=== PATIENT | male | born 1945 | race Caucasian/White ===

== ENCOUNTER 2020-11-30 21:27 | Observation (INO) | payer MEDICARE ==
--- NOTE | 2020-11-30 21:52 | ERPHSYRPT ---
- History of Present Illness Time Seen by Provider: 11/30/20 21:35 Source: patient Exam Limitations: no limitations Physician History: 75 years old male with history of hypertension, diabetes mellitus, congestive heart failure, TIA presented in the ER via EMS with chief complaint of near syncopal episode and fall. 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 He fell on the left hip and is complaining of pain in the left hip with minimal movements 8/10 intensity, sharp in nature. Also report having some chest discomfort immediately after near syncopal episode but is back to normal now. No difficulty breathing. Denies any abdominal pain nausea or vomiting. No numbness tingling or focal weakness. No difficulty speech. Denies any visual disturbance. Timing/Duration: hour(s) (0.5), sudden, improved Severity: moderate Associated Symptoms: nausea, chest pain, syncope, weakness, No vomiting, No abdominal pain, No shortness of breath, No heartburn, No diaphoresis, No cough, No chills, No fever, No headaches, No loss of appetite, No malaise Allergies/Adverse Reactions: No Known Drug Allergies Allergy (Unverified 11/30/20 21:35) Home Medications: Aspirin [Aspirin EC] 81 mg PO DAILY 11/30/20 [History] Carvedilol 25 mg PO BID 11/30/20 [History] Duloxetine HCl 20 mg PO BID 11/30/20 [History] Lisinopril/Hydrochlorothiazide [Lisinopril-Hctz 20-25 mg Tab] 1 tab PO DAILY 11/30/20 [History] Metformin HCl 500 mg [Glucophage 500 MG] 500 mg PO TID 11/30/20 [History] Terazosin HCl 2 mg PO HS 11/30/20 [History] - Review of Systems Constitutional: No Symptoms Eyes: No Symptoms Ears, Nose, & Throat: No Symptoms Respiratory: No Symptoms Cardiac: Chest Pain Abdominal/Gastrointestinal: No Symptoms Genitourinary Symptoms: No Symptoms Musculoskeletal: Fall, Injury, Joint Pain Skin: Skin Lesions Neurological: Dizziness Psychological: No Symptoms Endocrine: No Symptoms Hematologic/Lymphatic: No Symptoms Immunological/Allergic: No Symptoms - Nursing Vital Signs Nursing Vital Signs: Initial Vital Signs Temperature 97.9 F 11/30/20 21:33 Pulse Rate 91 H 11/30/20 21:33 Respiratory Rate 22 11/30/20 21:33 Blood Pressure 180/95 11/30/20 21:33 O2 Sat by Pulse Oximetry 97 11/30/20 21:33 Pain Scale Pain Intensity 5 - Physical Exam General Appearance: no apparent distress, alert Eye Exam: PERRL/EOMI, eyes nml inspection Ears, Nose, Throat Exam: normal ENT inspection, TMs normal, pharynx normal, moist mucous membranes Neck Exam: normal inspection, supple, full range of motion Respiratory Exam: normal breath sounds, lungs clear Cardiovascular Exam: regular rate/rhythm, normal heart sounds Gastrointestinal/Abdomen Exam: soft, normal bowel sounds, No tenderness Back Exam: normal inspection, normal range of motion, decreased range of motion (Left sacroiliac area tenderness), muscle spasm Extremity Exam: normal inspection, No normal range of motion (Decreased range of motion at left hip), No deformities Neurologic Exam: alert, oriented x 3, cooperative, 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 II-XII nml as tested, normal mood/affect, nml cerebellar function, sensation nml, No motor deficits Skin Exam: normal color SpO2 Interpretation: normal SpO2: 97 O2 Delivery: Room Air - Course EKG Interpreted by Me: RATE (82), Sinus Rhythm, LAFB, Right Bundle Branch Block, Non-specific ST Changes Ordered Tests: Active Orders 24 hr Category Date Time Status EKG-ER Only STAT Care 11/30/20 21:47 Active IV Insertion STAT Care 11/30/20 21:47 Active NPO (ED) STAT Care 11/30/20 21:47 Active Orthostatic Vital Signs STAT Care 11/30/20 21:48 Active CERVICAL SPINE WO CONTRAST [CT] Stat Exams 11/30/20 21:47 Taken CHEST 1 VIEW (PORTABLE) Stat Exams 11/30/20 21:48 Taken HEAD WITHOUT CONTRAST [CT] Stat Exams 11/30/20 21:47 Taken PELVIS WITHOUT CONTRAST [CT] Stat Exams 11/30/20 21:47 Taken CBC W DIFF Stat Lab 11/30/20 22:08 Completed CMP Stat Lab 11/30/20 22:08 Completed TROPONIN Q3H Lab 11/30/20 22:08 Completed TROPONIN Q3H Lab 12/01/20 01:00 Ordered TROPONIN Q3H Lab 12/01/20 04:00 Ordered TROPONIN Q3H Lab 12/01/20 07:00 Ordered TROPONIN Q3H Lab 12/01/20 10:00 Ordered UA W/RFX UR CULTURE Stat Lab 11/30/20 22:08 Completed Medication Summary Generic Name Dose Route Start Last Admin Trade Name Yeimy PRN Reason Stop Dose Admin Sodium Chloride 1,000 mls @ 100 mls/hr 11/30/20 23:15 11/30/20 23:09 Sodium Chloride 0.9% 1000 Ml IV 12/30/20 23:14 100 mls/hr .Q10H SUKHWINDER Administration Sodium Chloride 1,000 mls @ 100 mls/hr 11/30/20 23:15 11/30/20 23:09 Sodium Chloride 0.9% 1000 Ml IV 12/30/20 23:14 Not Given .Q10H SUKHWINDER Lab/Rad Data: Laboratory Result Diagrams 11/30/20 22:08 11/30/20 22:08 Laboratory Results 11/30/20 11/30/20 11/30/20 Range/Units 22:08 22:08 22:08 WBC (4.0-10.5) K/mm3 RBC (4.1-5.6) M/mm3 Hgb (12.5-18.0) gm/dl Hct (42-50) % MCV (78-100) fl MCH (26-32) pg MCHC (32-36) g/dl RDW (11.5-14.0) % Plt Count (150-450) K/mm3 MPV (7.5-11.0) fl Gran % (36.0-66.0) % Eos # (Auto) (0-0.5) Absolute Lymphs (auto) (1.0-4.6) Absolute Monos (auto) (0.0-1.3) Lymphocytes % (24.0-44.0) % Monocytes % (0.0-12.0) % Eosinophils % (0.00-5.0) % Basophils % (0.0-0.4) % Absolute Granulocytes (1.4-6.9) Basophils # (0-0.4) Sodium 141 (137-145) mmol/L Potassium 3.5 (3.5-5.1) mmol/L Chloride 103 (98-107) mmol/L Carbon Dioxide 30 (22-30) mmol/L Anion Gap 11.5 (5-15) MEQ/L BUN 23 H (9-20) mg/dL Creatinine 1.16 (0.66-1.25) mg/dL Estimated GFR > 60.0 ML/MIN Glucose 179 H (74-106) mg/dL Calcium 9.5 (8.4-10.2) mg/dL Total Bilirubin 0.70 (0.2-1.3) mg/dL AST 26 (17-59) U/L ALT 15 (0-50) U/L Alkaline Phosphatase 101 (38-126) U/L Troponin I < 0.012 (0.000-0.034) ng/mL Serum Total Protein 7.5 (6.3-8.2) g/dL Albumin 4.1 (3.5-5.0) g/dL Urine Color STRAW (YELLOW) Urine Appearance CLEAR (CLEAR) Urine pH 7.0 (5-6) Ur Specific [place] 1.008 (1.005-1.025) Urine Protein NEGATIVE (Negative) Urine Ketones NEGATIVE (NEGATIVE) Urine Blood NEGATIVE (0-5) Malik/ul Urine Nitrite NEGATIVE (NEGATIVE) Urine Bilirubin NEGATIVE (NEGATIVE) Urine Urobilinogen NEGATIVE (0-1) mg/dL Ur Leukocyte Esterase NEGATIVE (NEGATIVE) Urine WBC (Auto) 0-2 (0-5) /HPF Urine RBC (Auto) NONE (0-2) /HPF U Epithel Cells (Auto) NONE (FEW) /HPF Urine Bacteria (Auto) NONE (NEGATIVE) /HPF Urine Mucus (Auto) SLIGHT (NEGATIVE) /HPF Urine Culture Reflexed NO (NO) Urine Glucose NEGATIVE (NEGATIVE) mg/dL 11/30/20 Range/Units 22:08 WBC 12.9 H (4.0-10.5) K/mm3 RBC 4.95 (4.1-5.6) M/mm3 Hgb 14.5 (12.5-18.0) gm/dl Hct 46.4 (42-50) % MCV 93.7 (78-100) fl MCH 29.3 (26-32) pg MCHC 31.3 L (32-36) g/dl RDW 15.0 H (11.5-14.0) % Plt Count 239 (150-450) K/mm3 MPV 11.1 H (7.5-11.0) fl Gran % 77.9 H (36.0-66.0) % Eos # (Auto) 0.13 (0-0.5) Absolute Lymphs (auto) 1.71 (1.0-4.6) Absolute Monos (auto) 0.97 (0.0-1.3) Lymphocytes % 13.3 L (24.0-44.0) % Monocytes % 7.5 (0.0-12.0) % Eosinophils % 1.0 (0.00-5.0) % Basophils % 0.3 (0.0-0.4) % Absolute Granulocytes 10.03 H (1.4-6.9) Basophils # 0.04 (0-0.4) Sodium (137-145) mmol/L Potassium (3.5-5.1) mmol/L Chloride (98-107) mmol/L Carbon Dioxide (22-30) mmol/L Anion Gap (5-15) MEQ/L BUN (9-20) mg/dL Creatinine (0.66-1.25) mg/dL Estimated GFR ML/MIN Glucose (74-106) mg/dL Calcium (8.4-10.2) mg/dL Total Bilirubin (0.2-1.3) mg/dL AST (17-59) U/L ALT (0-50) U/L Alkaline Phosphatase (38-126) U/L Troponin I (0.000-0.034) ng/mL Serum Total Protein (6.3-8.2) g/dL Albumin (3.5-5.0) g/dL Urine Color (YELLOW) Urine Appearance (CLEAR) Urine pH (5-6) Ur Specific [place] (1.005-1.025) Urine Protein (Negative) Urine Ketones (NEGATIVE) Urine Blood (0-5) Malik/ul Urine Nitrite (NEGATIVE) Urine Bilirubin (NEGATIVE) Urine Urobilinogen (0-1) mg/dL Ur Leukocyte Esterase (NEGATIVE) Urine WBC (Auto) (0-5) /HPF Urine RBC (Auto) (0-2) /HPF U Epithel Cells (Auto) (FEW) /HPF Urine Bacteria (Auto) (NEGATIVE) /HPF Urine Mucus (Auto) (NEGATIVE) /HPF Urine Culture Reflexed (NO) Urine Glucose (NEGATIVE) mg/dL - Progress Progress: improved Progress Note: 11/30/20 23:22 75 years old is evaluated for sudden onset dizziness and near syncopal/syncopal episode and fall. Patient has nonfocal neuro exam throughout stay in the ER. I have obtained CT head and cervical spine which are negative for any acute f indings. CT pelvis did not show any fracture dislocation of left hip but has old arthritic changes. White count of 12, grossly unremarkable chemistries. Patient orthostatic blood pressure drop from 164 systolic spine position to 129 systolic in setting. Started on gentle hydration. Given symptomatic treatment for pain. Chest x-ray showed some congestion but no previous comparison available, no acute infiltrative process reviewed by me, official report pending. Discussed with Dr. Vallecillo and patient is being admitted for observation. 11/30/20 23:32 Discussed with : Haider Will see patient in: hospital (observation) Counseled pt/family regarding: lab results, diagnosis, rad results - Departure Departure Disposition: Observation Clinical Impression: Near syncope, Orthostatic dizziness Fall Qualifiers: Encounter type: initial encounter Qualified Code(s): W19.XXXA - Unspecified fall, initial encounter Contusion of left hip Qualifiers: Encounter type: initial encounter Qualified Code(s): S70.02XA - Contusion of left hip, initial encounter Condition: Stable Critical Care Time: No Referrals: MAHESH DAVIS MD [Primary Care Provider] -
[2020-11-30 22:12] LABS: Absolute Neutrophil Ct (ANC) 10.03 (1.4-6.9); BASOPHIL % 0.3 % (0.0-0.4); Basophil (Absolute #) 0.04 (0-0.4); Eosinophil (Absolute #) 0.13 (0-0.5); Hematocrit 46.4 % (42-50); Hemoglobin 14.5 gm/dl (12.5-18.0); Lymphocyte (Absolute #) 1.71 (1.0-4.6); Lymphocytes % 13.3 % (24.0-44.0); Mean Cell Volume 93.7 fl (78-100); Mean Corpuscular Hemoglobin 29.3 pg (26-32); Mean Corpuscular Hgb Concent. 31.3 g/dl (32-36); Mean Platelet Volume 11.1 fl (7.5-11.0); Monocyte (Absolute #) 0.97 (0.0-1.3); Monocytes % 7.5 % (0.0-12.0); Neutrophil % 77.9 % (36.0-66.0); Platelet Count 239 K/mm3 (150-450); Red Blood Count 4.95 M/mm3 (4.1-5.6); White Blood Count 12.9 K/mm3 (4.0-10.5)
[2020-11-30 22:20] LABS: Appearance CLEAR (CLEAR); Bilirubin NEGATIVE (NEGATIVE); Blood NEGATIVE Ery/ul (0-5); Glucose NEGATIVE (NEGATIVE); Ketones NEGATIVE (NEGATIVE); Leukocyte Esterase NEGATIVE (NEGATIVE); Mucus SLIGHT /HPF (NEGATIVE); Nitrite NEGATIVE (NEGATIVE); Protein,Urine Dip NEGATIVE (Negative); Specific Gravity 1.008 (1.005-1.025); Urobilinogen NEGATIVE mg/dL (0-1); WBC 0-2 /HPF (0-5)
[2020-11-30 22:21] LABS: ALBUMIN 4.1 g/dL (3.5-5.0); ALKALINE PHOSPHATASE 101 U/L (38-126); ANION GAP 11.5 MEQ/L (5-15); BLOOD UREA NITROGEN 23 mg/dL (9-20); CHLORIDE 103 mmol/L (98-107); Calcium 9.5 mg/dL (8.4-10.2); Carbon Dioxide 30 mmol/L (22-30); Creatinine 1 1.16 mg/dL (0.66-1.25); EST GLOMERULAR FILTRATION RATE > 60.0 ML/MIN; Glucose 179 mg/dL (74-106); Potassium 3.5 mmol/L (3.5-5.1); SGOT/AST 26 U/L (17-59); SGPT/ALT 15 U/L (0-50); SODIUM 141 mmol/L (137-145); Total Protein 7.5 g/dL (6.3-8.2)
[2020-11-30] MEDS ORDERED: Sodium Chloride 0.9% 1000 ML 1,000 ML ONE (23:08)
[2020-11-30] MEDS ORDERED: Sodium Chloride 0.9% 1000 ML 1,000 ML IV SCH ×2 (23:15)
[2020-11-30] MEDS ORDERED: PERCOCET TABLET 5/325MG PO ONE (23:35)
[2020-11-30] MEDS ORDERED: PERCOCET TABLET 5/325MG ONE (23:42)
[2020-12-01] MEDS ORDERED: HUMALOG SQ PRN (02:08)
[2020-12-01] MEDS ORDERED: Zofran 4 MG/2 ML VIAL IV PRN (02:08)
[2020-12-01] MEDS ORDERED: TYLENOL 325 MG PO PRN (02:08)
[2020-12-01] MEDS ORDERED: MORPHINE SULFATE 2 MG INJ IV PRN (02:08)
[2020-12-01] MEDS ORDERED: DUONEB 0.5-3 MG/3 ml Neb IH PRN (02:08)
[2020-12-01 05:35] LABS: Absolute Neutrophil Ct (ANC) 8.18 (1.4-6.9); BASOPHIL % 0.2 % (0.0-0.4); Basophil (Absolute #) 0.02 (0-0.4); Eosinophil (Absolute #) 0.11 (0-0.5); Hematocrit 42.8 % (42-50); Hemoglobin 13.4 gm/dl (12.5-18.0); Lymphocyte (Absolute #) 1.96 (1.0-4.6); Lymphocytes % 17.3 % (24.0-44.0); Mean Corpuscular Hemoglobin 29.1 pg (26-32); Mean Corpuscular Hgb Concent. 31.3 g/dl (32-36); Mean Platelet Volume 11.3 fl (7.5-11.0); Monocyte (Absolute #) 1.09 (0.0-1.3); Monocytes % 9.6 % (0.0-12.0); Neutrophil % 71.9 % (36.0-66.0); Platelet Count 225 K/mm3 (150-450); Red Cell Distribution Width 14.9 % (11.5-14.0); White Blood Count 11.4 K/mm3 (4.0-10.5)
[2020-12-01 05:56] LABS: ALBUMIN 3.4 g/dL (3.5-5.0); ALKALINE PHOSPHATASE 76 U/L (38-126); ANION GAP 14.2 MEQ/L (5-15); BLOOD UREA NITROGEN 20 mg/dL (9-20); CHLORIDE 103 mmol/L (98-107); Calcium 9.3 mg/dL (8.4-10.2); Carbon Dioxide 26 mmol/L (22-30); EST GLOMERULAR FILTRATION RATE > 60.0 ML/MIN; Glucose 142 mg/dL (74-106); Potassium 3.6 mmol/L (3.5-5.1); SGOT/AST 22 U/L (17-59); SGPT/ALT 14 U/L (0-50); SODIUM 140 mmol/L (137-145); Total Protein 6.4 g/dL (6.3-8.2)
--- NOTE | 2020-12-01 09:03 | XRAY ---
Exam: AP semiupright portable chest film from 11/30/2020. Comparison: CT of the chest without IV contrast from 12/06/2019. Indication: Near syncope; patient fell on to left side; patient unable to cooperate for the portable chest film positioning (i.e. limited). Findings: The portable radiograph was obtained in a very lordotic projection. Some apparent vascular calcification is seen at the base of the neck on each side of midline, left greater than right. This may represent carotid artery vascular calcification. Prominent osteophytes are seen within the visualized lower cervical spine. The transverse heart size is normal. A calcified, mildly tortuous descending thoracic aorta is seen. There are a few small right perihilar/infrahilar granulomatous calcifications. There is minimal elevation of the right hemidiaphragm. No acute air space infiltrates, vascular congestion, pneumothorax, or pleural fluid is seen. Advanced arthritic changes of the right shoulder are seen. I also note less pronounced osteoarthritis affecting the acromioclavicular joints. Impression: 1. Very lordotic AP portable chest radiograph revealing no gross evidence of acute cardiopulmonary disease. 2. Other incidental findings, as discussed above.
[2020-12-01] MEDS ORDERED: NON-FORMULARY ITEM (Carvedilol [Carvedilol] 25 MG) PO SCH (10:00)
[2020-12-01] MEDS ORDERED: HYDROCHLOROTHIAZIDE PO SCH (10:00)
[2020-12-01] MEDS ORDERED: DULOXETINE HCL 20 MG PO SCH (10:00)
[2020-12-01] MEDS ORDERED: LISINOPRIL PO SCH (10:00)
[2020-12-01] MEDS ORDERED: [UNRECOGNIZED DRUG - OTHER] PO SCH (10:00)
[2020-12-01] MEDS ORDERED: TERAZOSIN HCL 2 MG PO SCH (10:00)
[2020-12-01] MEDS ORDERED: MEDICATION INTERVENTION MC SCH (10:15)
[2020-12-01] MEDS: ECOTRIN 81 MG PO SCH (10:57)
[2020-12-01] MEDS: HYTRIN 1 MG PO SCH (10:58)
[2020-12-01] MEDS: Glucophage 500 MG PO SCH ×2 (10:58→17:46)
[2020-12-01] MEDS: hydroDIURIL 25 MG PO SCH (10:58)
[2020-12-01] MEDS: Zestril 20 MG PO SCH (10:58)
[2020-12-01] MEDS: COREG 12.5 MG PO SCH ×2 (10:58→21:15)
[2020-12-01] MEDS: TORAdol 30 mg Injection IV PRN ×2 (10:59→20:28)
[2020-12-01] MEDS: PROTONIX 40 MG IV IV SCH (10:59)
[2020-12-01] MEDS: Sodium Chloride 0.9% 1000 ML 1,000 ML IV SCH ×2 (11:05→21:15)
--- NOTE | 2020-12-01 17:12 | XRAY ---
Exam: CT of the head without IV contrast from 11/30/2020. CTDI: 53.92 mGy Comparison: None. Indication: 75-year-old male with fall due to near syncope; struck forehead on floor; no loss of consciousness. Technique: Non-IV contrast axial images were obtained through the brain. Reconstructed coronal and sagittal images were created and reviewed. Findings: The ventricles appear within normal limits of size. No focal mass effect or midline shift is seen. No acute intracranial bleed or abnormal extra-axial fluid collection is seen. Only subtle chronic microvascular disease is seen within the periventricular white matter. No discrete low attenuation infarct is seen within a major cerebral or cerebellar artery distribution. The cortical sulci and basilar cisterns appear normal for age. No fracture of the calvarium of the skull is seen. Hyperostosis frontalis interna is seen. I note minimal mucosal thickening within the inferior left maxillary sinus. There are no paranasal sinus air-fluid levels. There is deviation of the posterior aspect of nasal septum toward the right. Minor deformity of the right nasal bones is seen which could be due to an old healed fracture. Correlate clinically. The mastoid air cells are clear without effusion. The middle ear cavities appear grossly unremarkable. The orbits reveal no significant abnormality. Impression: 1. No acute intracranial bleed or other acute intracranial process is seen. 2. Other incidental findings, as discussed above.
--- NOTE | 2020-12-01 19:52 | XRAY ---
Exam: CT of the cervical spine without IV contrast from 11/30/2020. CTDI: 23.44 mGy Comparison: None. Indication: 75-year-old male fell due to near syncopal episode striking forehead on floor. Blunt trauma on 11/30/2020. Technique: Non-IV contrast axial images were obtained through the cervical spine. Reconstructed coronal and axial images were created and reviewed. Findings: I see no acute cervical spine fracture, AP traumatic subluxation, or prevertebral soft tissue swelling. There is moderate to marked degenerative disc disease at C6-C7 manifested by interspace height narrowing and moderate marginal vertebral endplate spurring anteriorly and posteriorly. There is also mild loss of the C4-C5 and C5-C6 interspace heights with less pronounced marginal vertebral endplate spurring. There is about 3 mm anterior subluxation of C4 over C5 and 2 mm anterior subluxation of C5 over C6. Both of these mild subluxations are likely due to degenerative changes. There are scattered moderate/marked facet joint/apophyseal joint spurring/degenerative changes. Moderate uncovertebral joint spurring is seen bilaterally at C6-C7. No cervical ribs are seen. Less pronounced mild uncovertebral joint spurring is seen at C3-C4 through C5-C6. The visualized lung apices appear clear. Vascular calcification is seen within the large arteries within the superior mediastinum. The thyroid gland reveals a 1.1 cm round low-attenuation nodule within the superior pole of the right lobe. This can be seen on a prior thyroid ultrasound from 01/17/2020 and appears essentially unchanged. I note varying degrees of neural foraminal stenosis throughout the cervical spine, most pronounced at C3-C4 on the right, C4-C5 bilaterally, C5-C6 on the left, and at C6-C7 bilaterally. Impression: 1. No acute cervical spine fracture or AP traumatic subluxation is seen. 2. There is about 3 mm anterior spondylolisthesis of C3 over C4 and 2 mm anterior spondylolisthesis of C4 over C5, likely degenerative in nature. No locked or perched facet joints are seen. 3. Marked degenerative disc disease at C6-C7 and less pronounced degenerative disc disease at C4-C5 and C5-C6 are seen. In addition, I see scattered advanced degenerative joint disease within the facet joint/apophyseal joints, as well as the uncovertebral joints. 4. The above contributes to multilevel neural foraminal stenosis, as discussed above.
--- NOTE | 2020-12-01 20:11 | XRAY ---
Exam: CT of the pelvis without IV contrast from 11/30/2020. CTDI: 35.82 mGy Comparison: AP pelvis including both hips from 06/06/2019. Indication: Fall due to near syncope in 75-year-old male. Patient complains of left hip pain. Technique: Non-IV contrast axial images were obtained through the pelvis. Reconstructed coronal and sagittal images were created and reviewed. Findings: I see no acute fracture or dislocation of the pelvis or either hip. 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 The sacroiliac joints appear unremarkable. Some benign appearing sclerotic lesions are seen within the left side of the sacrum and the upper aspect of the left iliac bone, perhaps representing bone islands. There is multilevel degenerative disc disease at the lower 3 lumbar interspace levels, most pronounced at L3-L4 followed by L4-L5. Vascular calcification is seen within the distal abdominal aorta and proximal iliac arteries. The prostate gland is enlarged measuring about 6.2 cm in width and 5.8 cm in AP dimension on axial image #73. There are also some small internal prostate gland calcifications. The inferior aspect of the kidneys are partially visualized and reveal bilateral nonobstructing calculi, more numerous on the right than left. A 5.4 cm in diameter cyst measuring +11.4 Hounsfield units is seen abutting the posterior medial aspect of the lower pole of the right kidney. Scattered stool is seen within the colon. I note mild proximal sigmoid colon diverticulosis without evidence of diverticulitis. Impression: 1. I see no acute fracture or dislocation within the pelvis or either hip. 2. Very severe bilateral degenerative osteoarthritis is seen within both hips, as discussed. 3. Moderate multilevel degenerative disc disease is seen from L3-L4 through L5-S1. 4. Some benign appearing sclerotic lesions are seen within the upper left pelvis, likely representing bone islands. 5. Marked prostate gland enlargement with some internal calcifications, mild proximal sigmoid colon diverticulosis without evidence of diverticulitis, moderate sized cyst abutting the lower pole of the right kidney, and some nonobstructing renal calculi within the visualized lower poles of each kidney, more numerous on the right than left, are seen.
--- NOTE | 2020-12-01 21:31 | PCM.HP ---
History of Present Illness - Chief Complaint Chief Complaint: passed out at home 1 hour ago History of Present Illness: is a 75 year old male.with history of hypertension, diabetes mellitus, congestive heart failure, TIA presented in the ER via EMS with chief complaint of near syncopal episode and fall. Patient reports he was cooking [place], turned around and felt dizzy lightheaded and was on the ground, did hit his forehead with questionable loss of consciousness for couple of seconds but not sure. He fell on the left hip and is complaining of pain in the left hip with minimal movements 8/10 intensity, sharp in nature. Also report having some chest discomfort immediately after near syncopal episode but is back to normal now. No difficulty breathing. Denies any abdominal pain nausea or vomiting. No numbness tingling or focal weakness. No difficulty speech. De nies any visual disturbance. - Review of Systems Constitutional: Weakness, No Fever, No Chills Eyes: No Symptoms Ears, Nose, & Throat: No Symptoms Respiratory: No Cough, No Short Of Breath Cardiac: No Chest Pain, No Edema, No Syncope Abdominal/Gastrointestinal: No Abdominal Pain, No Nausea, No Vomiting, No Diarrhea Genitourinary Symptoms: No Dysuria Musculoskeletal: Fall, Joint Pain, No Back Pain, No Neck Pain Skin: No Rash Neurological: No Dizziness, No Focal Weakness, No Sensory Changes Psychological: No Symptoms Endocrine: No Symptoms Hematologic/Lymphatic: No Symptoms Immunological/Allergic: No Symptoms Medications & Allergies Home Medications: Home Medication List Aspirin [Aspirin EC] 81 mg PO DAILY 11/30/20 [History Confirmed 12/01/20] Carvedilol 25 mg PO BID 11/30/20 [History Confirmed 12/01/20] Duloxetine HCl 20 mg PO BID 11/30/20 [History Confirmed 12/01/20] Lisinopril/Hydrochlorothiazide [Lisinopril-Hctz 20-25 mg Tab] 1 tab PO DAILY 11/30/20 [History Confirmed 12/01/20] Metformin HCl 500 mg [Glucophage 500 MG] 1,000 mg PO BID 11/30/20 [History Confirmed 12/01/20] Terazosin HCl 2 mg PO DAILY 11/30/20 [History Confirmed 12/01/20] Allergies/Adverse Reactions: Allergies Allergy/AdvReac Type Severity Reaction Status Date / Time No Known Drug Allergies Allergy Verified 12/01/20 02:18 - Past Medical History Past Medical History: Yes Neurological History: Peripheral Neuropathy, Stroke, TIA ENT History: Cataracts Cardiac History: Hypertension, Myocardial Infarction ([place]) Respiratory History: COPD Endocrine Medical History: Diabetes Type II Musculoskelatal History: Arthritis GI Medical History: Hernia History: No Pertinent History Pyscho-Social History: Anxiety, Depression Male Reproductive Disorders: Prostate Problems - Past Surgical History Past Surgical History: Yes Neuro Surgical History: No Pertinent History Cardiac History: Cardiac Catheterization Respiratory Surgery: No Pertinent History GI Surgical History: No Pertinent History Genitourinary Surgical Hx: No Pertinent History Musculskeletal Surgical Hx: No Pertinent History Male Surgical History: No Pertinent History Other Surgical History: thyroid biopsy October 2020 - results inconclusive - Social History Smoking Status: Never smoker Exposure to second hand smoke: No Alcohol: None Drug Use: none - Physical Exam Vital Signs: Vital Signs - 24 hr Temp Pulse Resp BP Pulse Ox 12/01/20 20:00 98.5 F 79 20 158/72 97 12/01/20 16:00 98.0 F 69 18 143/63 97 12/01/20 12:00 98.2 F 70 18 158/79 94 L 12/01/20 08:00 98.2 F 79 20 149/71 96 12/01/20 05:00 97.9 F 67 18 161/74 97 12/01/20 02:31 97.9 F 69 16 114/73 97 12/01/20 01:45 86 20 150/74 96 12/01/20 01:00 85 18 158/70 94 L 12/01/20 00:00 88 18 166/85 95 11/30/20 23:33 97 11/30/20 23:06 83 170/88 98 11/30/20 22:59 91 H 20 164/96 98 11/30/20 21:33 97.9 F 91 H 22 180/95 97 General Appearance: no apparent distress, alert Neurologic Exam: alert, oriented x 3, cooperative, normal mood/affect, nml cerebellar function, nml station & gait, sensation nml, No motor deficits Eye Exam: PERRL/EOMI, eyes nml inspection Ears, Nose, Throat Exam: normal ENT inspection, TMs normal, pharynx normal, moist mucous membranes Neck Exam: normal inspection, non-tender, supple, full range of motion Respiratory Exam: normal breath sounds, lungs clear, No respiratory distress Cardiovascular Exam: regular rate/rhythm, normal heart sounds, normal peripheral pulses Gastrointestinal/Abdomen Exam: soft, normal bowel sounds, No tenderness, No mass Back Exam: normal inspection, normal range of motion, No CVA tenderness, No vertebral tenderness Extremity Exam: normal inspection, pelvis stable, limited range of motion (hip and knee joints) Skin Exam: normal color, warm, dry, No rash Lymphatic Exam: No adenopathy Results - Labs Lab/Micro Results: Lab Results-Last 24 Hours 11/30/20 11/30/20 11/30/20 Range/Units 22:08 22:08 22:08 WBC 12.9 H (4.0-10.5) K/mm3 RBC 4.95 (4.1-5.6) M/mm3 Hgb 14.5 (12.5-18.0) gm/dl Hct 46.4 (42-50) % MCV 93.7 (78-100) fl MCH 29.3 (26-32) pg MCHC 31.3 L (32-36) g/dl RDW 15.0 H (11.5-14.0) % Plt Count 239 (150-450) K/mm3 MPV 11.1 H (7.5-11.0) fl Gran % 77.9 H (36.0-66.0) % Eos # (Auto) 0.13 (0-0.5) Absolute Lymphs (auto) 1.71 (1.0-4.6) Absolute Monos (auto) 0.97 (0.0-1.3) Lymphocytes % 13.3 L (24.0-44.0) % Monocytes % 7.5 (0.0-12.0) % Eosinophils % 1.0 (0.00-5.0) % Basophils % 0.3 (0.0-0.4) % Absolute Granulocytes 10.03 H (1.4-6.9) Basophils # 0.04 (0-0.4) Sodium 141 (137-145) mmol/L Potassium 3.5 (3.5-5.1) mmol/L Chloride 103 (98-107) mmol/L Carbon Dioxide 30 (22-30) mmol/L Anion Gap 11.5 (5-15) MEQ/L BUN 23 H (9-20) mg/dL Creatinine 1.16 (0.66-1.25) mg/dL Estimated GFR > 60.0 ML/MIN Glucose 179 H (74-106) mg/dL POC Glucometer (74 to 106) mg/dL Calcium 9.5 (8.4-10.2) mg/dL Total Bilirubin 0.70 (0.2-1.3) mg/dL AST 26 (17-59) U/L ALT 15 (0-50) U/L Alkaline Phosphatase 101 (38-126) U/L Troponin I (0.000-0.034) ng/mL Serum Total Protein 7.5 (6.3-8.2) g/dL Albumin 4.1 (3.5-5.0) g/dL Urine Color STRAW (YELLOW) Urine Appearance CLEAR (CLEAR) Urine pH 7.0 (5-6) Ur Specific Tracy 1.008 (1.005-1.025) Urine Protein NEGATIVE (Negative) Urine Ketones NEGATIVE (NEGATIVE) Urine Blood NEGATIVE (0-5) Malik/ul Urine Nitrite NEGATIVE (NEGATIVE) Urine Bilirubin NEGATIVE (NEGATIVE) Urine Urobilinogen NEGATIVE (0-1) mg/dL Ur Leukocyte Esterase NEGATIVE (NEGATIVE) Urine WBC (Auto) 0-2 (0-5) /HPF Urine RBC (Auto) NONE (0-2) /HPF U Epithel Cells (Auto) NONE (FEW) /HPF Urine Bacteria (Auto) NONE (NEGATIVE) /HPF Urine Mucus (Auto) SLIGHT (NEGATIVE) /HPF Urine Culture Reflexed NO (NO) Urine Glucose NEGATIVE (NEGATIVE) mg/dL SARS-CoV-2 (PCR) (NEGATIVE) 11/30/20 11/30/20 12/01/20 Range/Units 22:08 23:55 00:58 WBC (4.0-10.5) K/mm3 RBC (4.1-5.6) M/mm3 Hgb (12.5-18.0) gm/dl Hct (42-50) % MCV (78-100) fl MCH (26-32) pg MCHC (32-36) g/dl RDW (11.5-14.0) % Plt Count (150-450) K/mm3 MPV (7.5-11.0) fl Gran % (36.0-66.0) % Eos # (Auto) (0-0.5) Absolute Lymphs (auto) (1.0-4.6) Absolute Monos (auto) (0.0-1.3) Lymphocytes % (24.0-44.0) % Monocytes % (0.0-12.0) % Eosinophils % (0.00-5.0) % Basophils % (0.0-0.4) % Absolute Granulocytes (1.4-6.9) Basophils # (0-0.4) Sodium (137-145) mmol/L Potassium (3.5-5.1) mmol/L Chloride (98-107) mmol/L Carbon Dioxide (22-30) mmol/L Anion Gap (5-15) MEQ/L BUN (9-20) mg/dL Creatinine (0.66-1.25) mg/dL Estimated GFR ML/MIN Glucose (74-106) mg/dL POC Glucometer (74 to 106) mg/dL Calcium (8.4-10.2) mg/dL Total Bilirubin (0.2-1.3) mg/dL AST (17-59) U/L ALT (0-50) U/L Alkaline Phosphatase (38-126) U/L Troponin I < 0.012 < 0.012 (0.000-0.034) ng/mL Serum Total Protein (6.3-8.2) g/dL Albumin (3.5-5.0) g/dL Urine Color (YELLOW) Urine Appearance (CLEAR) Urine pH (5-6) Ur Specific Tracy (1.005-1.025) Urine Protein (Negative) Urine Ketones (NEGATIVE) Urine Blood (0-5) Malik/ul Urine Nitrite (NEGATIVE) Urine Bilirubin (NEGATIVE) Urine Urobilinogen (0-1) mg/dL Ur Leukocyte Esterase (NEGATIVE) Urine WBC (Auto) (0-5) /HPF Urine RBC (Auto) (0-2) /HPF U Epithel Cells (Auto) (FEW) /HPF Urine Bacteria (Auto) (NEGATIVE) /HPF Urine Mucus (Auto) (NEGATIVE) /HPF Urine Culture Reflexed (NO) Urine Glucose (NEGATIVE) mg/dL SARS-CoV-2 (PCR) NEGATIVE (NEGATIVE) 12/01/20 12/01/20 12/01/20 Range/Units 05:00 05:00 05:00 WBC 11.4 H (4.0-10.5) K/mm3 RBC 4.60 (4.1-5.6) M/mm3 Hgb 13.4 (12.5-18.0) gm/dl Hct 42.8 (42-50) % MCV 93.0 (78-100) fl MCH 29.1 (26-32) pg MCHC 31.3 L (32-36) g/dl RDW 14.9 H (11.5-14.0) % Plt Count 225 (150-450) K/mm3 MPV 11.3 H (7.5-11.0) fl Gran % 71.9 H (36.0-66.0) % Eos # (Auto) 0.11 (0-0.5) Absolute Lymphs (auto) 1.96 (1.0-4.6) Absolute Monos (auto) 1.09 (0.0-1.3) Lymphocytes % 17.3 L (24.0-44.0) % Monocytes % 9.6 (0.0-12.0) % Eosinophils % 1.0 (0.00-5.0) % Basophils % 0.2 (0.0-0.4) % Absolute Granulocytes 8.18 H (1.4-6.9) Basophils # 0.02 (0-0.4) Sodium 140 (137-145) mmol/L Potassium 3.6 (3.5-5.1) mmol/L Chloride 103 (98-107) mmol/L Carbon Dioxide 26 (22-30) mmol/L Anion Gap 14.2 (5-15) MEQ/L BUN 20 (9-20) mg/dL Creatinine 0.90 (0.66-1.25) mg/dL Estimated GFR > 60.0 ML/MIN Glucose 142 H (74-106) mg/dL POC Glucometer (74 to 106) mg/dL Calcium 9.3 (8.4-10.2) mg/dL Total Bilirubin 0.80 (0.2-1.3) mg/dL AST 22 (17-59) U/L ALT 14 (0-50) U/L Alkaline Phosphatase 76 (38-126) U/L Troponin I 0.013 (0.000-0.034) ng/mL Serum Total Protein 6.4 (6.3-8.2) g/dL Albumin 3.4 L (3.5-5.0) g/dL Urine Color (YELLOW) Urine Appearance (CLEAR) Urine pH (5-6) Ur Specific Tracy (1.005-1.025) Urine Protein (Negative) Urine Ketones (NEGATIVE) Urine Blood (0-5) Malik/ul Urine Nitrite (NEGATIVE) Urine Bilirubin (NEGATIVE) Urine Urobilinogen (0-1) mg/dL Ur Leukocyte Esterase (NEGATIVE) Urine WBC (Auto) (0-5) /HPF Urine RBC (Auto) (0-2) /HPF U Epithel Cells (Auto) (FEW) /HPF Urine Bacteria (Auto) (NEGATIVE) /HPF Urine Mucus (Auto) (NEGATIVE) /HPF Urine Culture Reflexed (NO) Urine Glucose (NEGATIVE) mg/dL SARS-CoV-2 (PCR) (NEGATIVE) 12/01/20 12/01/20 12/01/20 Range/Units 07:58 09:29 11:17 WBC (4.0-10.5) K/mm3 RBC (4.1-5.6) M/mm3 Hgb (12.5-18.0) gm/dl Hct (42-50) % MCV (78-100) fl MCH (26-32) pg MCHC (32-36) g/dl RDW (11.5-14.0) % Plt Count (150-450) K/mm3 MPV (7.5-11.0) fl Gran % (36.0-66.0) % Eos # (Auto) (0-0.5) Absolute Lymphs (auto) (1.0-4.6) Absolute Monos (auto) (0.0-1.3) Lymphocytes % (24.0-44.0) % Monocytes % (0.0-12.0) % Eosinophils % (0.00-5.0) % Basophils % (0.0-0.4) % Absolute Granulocytes (1.4-6.9) Basophils # (0-0.4) Sodium (137-145) mmol/L Potassium (3.5-5.1) mmol/L Chloride (98-107) mmol/L Carbon Dioxide (22-30) mmol/L Anion Gap (5-15) MEQ/L BUN (9-20) mg/dL Creatinine (0.66-1.25) mg/dL Estimated GFR ML/MIN Glucose (74-106) mg/dL POC Glucometer 239 H (74 to 106) mg/dL Calcium (8.4-10.2) mg/dL Total Bilirubin (0.2-1.3) mg/dL AST (17-59) U/L ALT (0-50) U/L Alkaline Phosphatase (38-126) U/L Troponin I 0.014 < 0.012 (0.000-0.034) ng/mL Serum Total Protein (6.3-8.2) g/dL Albumin (3.5-5.0) g/dL Urine Color (YELLOW) Urine Appearance (CLEAR) Urine pH (5-6) Ur Specific Tracy (1.005-1.025) Urine Protein (Negative) Urine Ketones (NEGATIVE) Urine Blood (0-5) Malik/ul Urine Nitrite (NEGATIVE) Urine Bilirubin (NEGATIVE) Urine Urobilinogen (0-1) mg/dL Ur Leukocyte Esterase (NEGATIVE) Urine WBC (Auto) (0-5) /HPF Urine RBC (Auto) (0-2) /HPF U Epithel Cells (Auto) (FEW) /HPF Urine Bacteria (Auto) (NEGATIVE) /HPF Urine Mucus (Auto) (NEGATIVE) /HPF Urine Culture Reflexed (NO) Urine Glucose (NEGATIVE) mg/dL SARS-CoV-2 (PCR) (NEGATIVE) 12/01/20 12/01/20 12/01/20 Range/Units 11:34 16:21 20:30 WBC (4.0-10.5) K/mm3 RBC (4.1-5.6) M/mm3 Hgb (12.5-18.0) gm/dl Hct (42-50) % MCV (78-100) fl MCH (26-32) pg MCHC (32-36) g/dl RDW (11.5-14.0) % Plt Count (150-450) K/mm3 MPV (7.5-11.0) fl Gran % (36.0-66.0) % Eos # (Auto) (0-0.5) Absolute Lymphs (auto) (1.0-4.6) Absolute Monos (auto) (0.0-1.3) Lymphocytes % (24.0-44.0) % Monocytes % (0.0-12.0) % Eosinophils % (0.00-5.0) % Basophils % (0.0-0.4) % Absolute Granulocytes (1.4-6.9) Basophils # (0-0.4) Sodium (137-145) mmol/L Potassium (3.5-5.1) mmol/L Chloride (98-107) mmol/L Carbon Dioxide (22-30) mmol/L Anion Gap (5-15) MEQ/L BUN (9-20) mg/dL Creatinine (0.66-1.25) mg/dL Estimated GFR ML/MIN Glucose (74-106) mg/dL POC Glucometer 127 H 166 H 107 H (74 to 106) mg/dL Calcium (8.4-10.2) mg/dL Total Bilirubin (0.2-1.3) mg/dL AST (17-59) U/L ALT (0-50) U/L Alkaline Phosphatase (38-126) U/L Troponin I (0.000-0.034) ng/mL Serum Total Protein (6.3-8.2) g/dL Albumin (3.5-5.0) g/dL Urine Color (YELLOW) Urine Appearance (CLEAR) Urine pH (5-6) Ur Specific Tracy (1.005-1.025) Urine Protein (Negative) Urine Ketones (NEGATIVE) Urine Blood (0-5) Malik/ul Urine Nitrite (NEGATIVE) Urine Bilirubin (NEGATIVE) Urine Urobilinogen (0-1) mg/dL Ur Leukocyte Esterase (NEGATIVE) Urine WBC (Auto) (0-5) /HPF Urine RBC (Auto) (0-2) /HPF U Epithel Cells (Auto) (FEW) /HPF Urine Bacteria (Auto) (NEGATIVE) /HPF Urine Mucus (Auto) (NEGATIVE) /HPF Urine Culture Reflexed (NO) Urine Glucose (NEGATIVE) mg/dL SARS-CoV-2 (PCR) (NEGATIVE) Accuchecks Date 12/01/20 Time 20:35 - Radiology Impressions Radiology Exams & Impressions: Radiology Procedures Category Date Time Status CERVICAL SPINE WO CONTRAST [CT] Stat Exams 11/30/20 21:47 Completed CHEST 1 VIEW (PORTABLE) Stat Exams 11/30/20 21:48 Completed HEAD WITHOUT CONTRAST [CT] Stat Exams 11/30/20 21:47 Completed PELVIS WITHOUT CONTRAST [CT] Stat Exams 11/30/20 21:47 Completed Assessment/Plan (1) Contusion of left hip Current Visit: Yes Status: Acute Qualifiers: Encounter type: initial encounter Qualified Code(s): S70.02XA - Contusion of left hip, initial encounter Assessment & Plan: Chief Complaint Diagnosis Near syncope Allergies Allergy/AdvReac Type Severity Reaction Status Date / Time No Known Drug Allergies Allergy Verified 12/01/20 02:18 Vital Signs (Last 24 hours) Temp Pulse Resp BP Pulse Ox 12/01/20 20:00 98.5 F 79 20 158/72 97 12/01/20 16:00 98.0 F 69 18 143/63 97 12/01/20 12:00 98.2 F 70 18 158/79 94 L 12/01/20 08:00 98.2 F 79 20 149/71 96 12/01/20 05:00 97.9 F 67 18 161/74 97 12/01/20 02:31 97.9 F 69 16 114/73 97 12/01/20 01:45 86 20 150/74 96 12/01/20 01:00 85 18 158/70 94 L 12/01/20 00:00 88 18 166/85 95 11/30/20 23:33 97 11/30/20 23:06 83 170/88 98 11/30/20 22:59 91 H 20 164/96 98 11/30/20 21:33 97.9 F 91 H 22 180/95 97 Home Medications Medication Instructions Recorded Confirmed Last Taken Type Aspirin [Aspirin EC] 81 mg PO DAILY 11/30/20 12/01/20 11/30/20 05:30 History Carvedilol 25 mg PO BID 11/30/20 12/01/20 11/30/20 05:30 History Duloxetine HCl 20 mg PO BID 11/30/20 12/01/20 11/30/20 05:30 History Lisinopril/Hydrochlorothiazide 1 tab PO DAILY 11/30/20 12/01/20 11/30/20 05:30 History [Lisinopril-Hctz 20-25 mg Tab] Metformin HCl 500 mg 1,000 mg PO BID 11/30/20 12/01/20 11/30/20 05:30 History [Glucophage 500 MG] Terazosin HCl 2 mg PO DAILY 11/30/20 12/01/20 11/30/20 05:30 History Current Medications Generic Name Dose Route Start Last Admin Trade Name Freq PRN Reason Stop Dose Admin Acetaminophen 650 mg 12/01/20 02:08 12/01/20 06:19 Tylenol 325 Mg PO 12/31/20 02:07 650 mg Q4H PRN PRN Administration PAIN AND/OR FEVER Aspirin 81 mg 12/01/20 10:00 12/01/20 10:57 Ecotrin 81 Mg PO 12/31/20 09:59 81 mg DAILY SUKHWINDER Administration Carvedilol 25 mg 12/01/20 10:30 12/01/20 21:15 Coreg 12.5 Mg PO 12/31/20 10:29 25 mg BID SUKHWINDER Administration Hydrochlorothiazide 25 mg 12/01/20 10:30 12/01/20 10:58 Hydrodiuril 25 Mg PO 12/31/20 10:29 25 mg DAILY SUKHWINDER Administration Sodium Chloride 1,000 mls @ 100 mls/hr 12/01/20 02:08 12/01/20 21:15 Sodium Chloride 0.9% 1000 Ml IV 12/31/20 02:07 Not Given .Q10H SUKHWINDER Insulin Human Lispro 0 unit 12/01/20 02:08 Humalog SQ 12/31/20 02:07 UD PRN HYPERGLYCEMIA Ketorolac Tromethamine 30 mg 12/01/20 09:18 12/01/20 20:28 Toradol 30 Mg Injection IV 12/06/20 09:17 30 mg Q8H PRN PRN Administration PAIN Lisinopril 20 mg 12/01/20 10:30 12/01/20 10:58 Zestril 20 Mg PO 12/31/20 10:29 20 mg DAILY SUKHWINDER Administration Metformin HCl 1,000 mg 12/01/20 10:00 12/01/20 17:46 Glucophage 500 Mg PO 12/31/20 09:59 1,000 mg BIDWM SUKHWINDER Administration Miscellaneous Information 1 each 12/01/20 10:15 Medication Intervention MC 12/31/20 10:14 . RN TO CHECK SUKHWINDER Morphine Sulfate 2 mg 12/01/20 02:08 Morphine Sulfate 2 Mg Inj IV 12/06/20 02:07 Q4H PRN PRN PAIN Ondansetron HCl 4 mg 12/01/20 02:08 Zofran 4 Mg/2 Ml Vial IV 12/31/20 02:07 Q6H PRN PRN NAUSEA/VOMITING Pantoprazole Sodium 40 mg 12/01/20 10:00 12/01/20 10:59 Protonix 40 Mg Iv IV 12/31/20 09:59 40 mg Q24H10 SUKHWINDER Administration Terazosin HCl 2 mg 12/01/20 10:30 12/01/20 10:58 Hytrin 1 Mg PO 12/31/20 10:29 2 mg DAILY SUKHWINDER Administration Discontinued Medications Generic Name Dose Route Start Last Admin Trade Name Freq PRN Reason Stop Dose Admin Albuterol/Ipratropium 3 ml 12/01/20 02:08 Duoneb 0.5-3 Mg/3 Ml Neb IH 12/31/20 02:07 Q4HPRN PRN SHORTNESS OF BREATH/WHEEZING Sodium Chloride 1,000 mls @ 100 mls/hr 11/30/20 23:15 11/30/20 23:09 Sodium Chloride 0.9% 1000 Ml IV 12/30/20 23:14 100 mls/hr .Q10H SUKHWINDER Administration Sodium Chloride 1,000 mls @ 100 mls/hr 11/30/20 23:15 11/30/20 23:09 Sodium Chloride 0.9% 1000 Ml IV 12/30/20 23:14 Not Given .Q10H SUKHWINDER Sodium Chloride Confirm 11/30/20 23:08 Sodium Chloride 0.9% 1000 Ml Administered 11/30/20 23:09 Dose 1,000 mls @ ud .ROUTE .STK-MED ONE Oxycodone/Acetaminophen 1 tab 11/30/20 23:35 11/30/20 23:44 Percocet Tablet 5/325mg PO 11/30/20 23:36 1 tab STAT ONE Administration Oxycodone/Acetaminophen Confirm 11/30/20 23:42 Percocet Tablet 5/325mg Administered 11/30/20 23:43 Dose 1 tab .ROUTE .STK-MED ONE Intake & Output (Last 24 hours) 11/29/20 11/30/20 12/01/20 12/02/20 11:59 11:59 11:59 11:59 Intake Total 394 480 Output Total 1050 200 Balance -656 280 Weight 87.5 kg Laboratory Results (Last 24 hours) 12/01/20 12/01/20 12/01/20 20:30 16:21 11:34 WBC RBC Hgb Hct MCV MCH MCHC RDW Plt Count MPV Gran % Eos # (Auto) Absolute Lymphs (auto) Absolute Monos (auto) Lymphocytes % Monocytes % Eosinophils % Basophils % Absolute Granulocytes Basophils # Sodium Potassium Chloride Carbon Dioxide Anion Gap BUN Creatinine Estimated GFR Glucose POC Glucometer 107 H 166 H 127 H Calcium Total Bilirubin AST ALT Alkaline Phosphatase Troponin I Serum Total Protein Albumin Urine Color Urine Appearance Urine pH Ur Specific Tracy Urine Protein Urine Ketones Urine Blood Urine Nitrite Urine Bilirubin Urine Urobilinogen Ur Leukocyte Esterase Urine WBC (Auto) Urine RBC (Auto) U Epithel Cells (Auto) Urine Bacteria (Auto) Urine Mucus (Auto) Urine Culture Reflexed Urine Glucose SARS-CoV-2 (PCR) 12/01/20 12/01/20 12/01/20 11:17 09:29 07:58 WBC RBC Hgb Hct MCV MCH MCHC RDW Plt Count MPV Gran % Eos # (Auto) Absolute Lymphs (auto) Absolute Monos (auto) Lymphocytes % Monocytes % Eosinophils % Basophils % Absolute Granulocytes Basophils # Sodium Potassium Chloride Carbon Dioxide Anion Gap BUN Creatinine Estimated GFR Glucose POC Glucometer 239 H Calcium Total Bilirubin AST ALT Alkaline Phosphatase Troponin I < 0.012 0.014 Serum Total Protein Albumin Urine Color Urine Appearance Urine pH Ur Specific Tracy Urine Protein Urine Ketones Urine Blood Urine Nitrite Urine Bilirubin Urine Urobilinogen Ur Leukocyte Esterase Urine WBC (Auto) Urine RBC (Auto) U Epithel Cells (Auto) Urine Bacteria (Auto) Urine Mucus (Auto) Urine Culture Reflexed Urine Glucose SARS-CoV-2 (PCR) 12/01/20 12/01/20 12/01/20 05:00 05:00 05:00 WBC 11.4 H RBC 4.60 Hgb 13.4 Hct 42.8 MCV 93.0 MCH 29.1 MCHC 31.3 L RDW 14.9 H Plt Count 225 MPV 11.3 H Gran % 71.9 H Eos # (Auto) 0.11 Absolute Lymphs (auto) 1.96 Absolute Monos (auto) 1.09 Lymphocytes % 17.3 L Monocytes % 9.6 Eosinophils % 1.0 Basophils % 0.2 Absolute Granulocytes 8.18 H Basophils # 0.02 Sodium 140 Potassium 3.6 Chloride 103 Carbon Dioxide 26 Anion Gap 14.2 BUN 20 Creatinine 0.90 Estimated GFR > 60.0 Glucose 142 H POC Glucometer Calcium 9.3 Total Bilirubin 0.80 AST 22 ALT 14 Alkaline Phosphatase 76 Troponin I 0.013 Serum Total Protein 6.4 Albumin 3.4 L Urine Color Urine Appearance Urine pH Ur Specific Tracy Urine Protein Urine Ketones Urine Blood Urine Nitrite Urine Bilirubin Urine Urobilinogen Ur Leukocyte Esterase Urine WBC (Auto) Urine RBC (Auto) U Epithel Cells (Auto) Urine Bacteria (Auto) Urine Mucus (Auto) Urine Culture Reflexed Urine Glucose SARS-CoV-2 (PCR) 12/01/20 11/30/20 11/30/20 00:58 23:55 22:08 WBC RBC Hgb Hct MCV MCH MCHC RDW Plt Count MPV Gran % Eos # (Auto) Absolute Lymphs (auto) Absolute Monos (auto) Lymphocytes % Monocytes % Eosinophils % Basophils % Absolute Granulocytes Basophils # Sodium Potassium Chloride Carbon Dioxide Anion Gap BUN Creatinine Estimated GFR Glucose POC Glucometer Calcium Total Bilirubin AST ALT Alkaline Phosphatase Troponin I < 0.012 < 0.012 Serum Total Protein Albumin Urine Color Urine Appearance Urine pH Ur Specific Tracy Urine Protein Urine Ketones Urine Blood Urine Nitrite Urine Bilirubin Urine Urobilinogen Ur Leukocyte Esterase Urine WBC (Auto) Urine RBC (Auto) U Epithel Cells (Auto) Urine Bacteria (Auto) Urine Mucus (Auto) Urine Culture Reflexed Urine Glucose SARS-CoV-2 (PCR) NEGATIVE 11/30/20 11/30/20 11/30/20 22:08 22:08 22:08 WBC 12.9 H RBC 4.95 Hgb 14.5 Hct 46.4 MCV 93.7 MCH 29.3 MCHC 31.3 L RDW 15.0 H Plt Count 239 MPV 11.1 H Gran % 77.9 H Eos # (Auto) 0.13 Absolute Lymphs (auto) 1.71 Absolute Monos (auto) 0.97 Lymphocytes % 13.3 L Monocytes % 7.5 Eosinophils % 1.0 Basophils % 0.3 Absolute Granulocytes 10.03 H Basophils # 0.04 Sodium 141 Potassium 3.5 Chloride 103 Carbon Dioxide 30 Anion Gap 11.5 BUN 23 H Creatinine 1.16 Estimated GFR > 60.0 Glucose 179 H POC Glucometer Calcium 9.5 Total Bilirubin 0.70 AST 26 ALT 15 Alkaline Phosphatase 101 Troponin I Serum Total Protein 7.5 Albumin 4.1 Urine Color STRAW Urine Appearance CLEAR Urine pH 7.0 Ur Specific Tracy 1.008 Urine Protein NEGATIVE Urine Ketones NEGATIVE Urine Blood NEGATIVE Urine Nitrite NEGATIVE Urine Bilirubin NEGATIVE Urine Urobilinogen NEGATIVE Ur Leukocyte Esterase NEGATIVE Urine WBC (Auto) 0-2 Urine RBC (Auto) NONE U Epithel Cells (Auto) NONE Urine Bacteria (Auto) NONE Urine Mucus (Auto) SLIGHT Urine Culture Reflexed NO Urine Glucose NEGATIVE SARS-CoV-2 (PCR) Orders (Last 24 hours) Category Date Time Status Bedrest ROUTINE Activity 12/01/20 02:08 Active Up With Assistance TOLERATED Activity 12/01/20 02:08 Active Code Status Order ROUTINE Care 12/01/20 02:08 Active EKG-ER Only STAT Care 11/30/20 21:47 Completed Fall Protocol Q1H Care 12/01/20 02:08 Active IV Care Q6H Care 12/01/20 02:08 Active IV Insertion STAT Care 11/30/20 21:47 Completed NPO (ED) STAT Care 11/30/20 21:47 Completed Neuro Checks Q4H Care 12/01/20 02:08 Active Orthostatic Vital Signs STAT Care 11/30/20 21:48 Completed POCT Glucose Check ACHS Care 12/01/20 02:[address] in Observation ROUTINE Care 12/01/20 02:08 Active Kurt Rico ROUTINE Care 12/01/20 02:08 Active Weight,Daily 0600 Care 12/01/20 02:08 Active Central Sterile Technician/Discharge Plan ROUTINE Cons 12/01/20 02:46 Active Consistent Carbohydrate Diet 1800 Calorie Diet 12/01/20 Breakfast Active Nutritional Admission Screen ONCE Diet 12/01/20 02:46 Active CERVICAL SPINE WO CONTRAST [CT] Stat Exams 11/30/20 21:47 Completed CHEST 1 VIEW (PORTABLE) Stat Exams 11/30/20 21:48 Completed HEAD WITHOUT CONTRAST [CT] Stat Exams 11/30/20 21:47 Completed PELVIS WITHOUT CONTRAST [CT] Stat Exams 11/30/20 21:47 Completed CBC W DIFF AM.LAB Lab 12/01/20 05:00 Completed CBC W DIFF Stat Lab 11/30/20 22:08 Completed CMP AM.LAB Lab 12/01/20 05:00 Completed CMP Stat Lab 11/30/20 22:08 Completed POCT GLUCOSE Stat Lab 12/01/20 09:29 Completed POCT GLUCOSE Stat Lab 12/01/20 11:34 Completed POCT GLUCOSE Stat Lab 12/01/20 16:21 Completed POCT GLUCOSE Stat Lab 12/01/20 20:30 Completed SARS-CoV-2 Xpert Express Routine Lab 11/30/20 23:55 Completed TROPONIN Q3H Lab 11/30/20 22:08 Completed TROPONIN Q3H Lab 12/01/20 00:58 Completed TROPONIN Q3H Lab 12/01/20 05:00 Completed TROPONIN Q3H Lab 12/01/20 07:58 Completed TROPONIN Q3H Lab 12/01/20 11:17 Completed UA W/RFX UR CULTURE Stat Lab 11/30/20 22:08 Completed Acetaminophen 325 mg [Tylenol 325 mg] Med 12/01/20 02:08 Active 650 mg PO Q4H PRN PRN Albuterol/Ipratropium 3ml Neb* [DUONEB 0.5-3 MG/3 ml Med 12/01/20 02:08 Discontinued Neb] 3 ml IH Q4HPRN PRN Aspirin EC 81 mg [Ecotrin 81 mg] Med 12/01/20 10:00 Active 81 mg PO DAILY Carvedilol 12.5 mg [Coreg 12.5 mg] Med 12/01/20 10:30 Active 25 mg PO BID Hydrochlorothiazide 25 mg [hydroDIURIL 25 MG] Med 12/01/20 10:30 Active 25 mg PO DAILY Insulin Lispro [Humalog] Med 12/01/20 02:08 Active See Dose Instructions SQ UD PRN KETOROLAC trometh 30 mg Inj [TORAdol 30 mg Injection Med 12/01/20 09:18 Active ] 30 mg IV Q8H PRN PRN Lisinopril 20 mg [Zestril 20 MG] Med 12/01/20 10:30 Active 20 mg PO DAILY Medication Intervention Med 12/01/20 10:15 Active 1 each MC . RN TO CHECK Metformin HCl 500 mg [Glucophage 500 MG] Med 12/01/20 10:00 Active 1,000 mg PO BIDWM Morphine Sulfate 2 mg Inj Med 12/01/20 02:08 Active 2 mg IV Q4H PRN PRN NaCl 0.9% 1000 ml [Sodium Chloride 0.9% 1000 ML] 1,000 Med 11/30/20 23:08 Discontinued ml .ROUTE UD NaCl 0.9% 1000 ml [Sodium Chloride 0.9% 1000 ML] 1,000 Med 11/30/20 23:15 Discontinued ml IV 100 mls/hr NaCl 0.9% 1000 ml [Sodium Chloride 0.9% 1000 ML] 1,000 Med 11/30/20 23:15 Discontinued ml IV 100 mls/hr NaCl 0.9% 1000 ml [Sodium Chloride 0.9% 1000 ML] 1,000 Med 12/01/20 02:08 Active ml IV 100 mls/hr Ondansetron HCl 4 mg/2 ml [Zofran 4 MG/2 ML VIAL] Med 12/01/20 02:08 Active 4 mg IV Q6H PRN PRN Oxycodone/APAP 5 mg/325 mg [Percocet Tablet 5/325Mg Med 11/30/20 23:42 Discontinued *] 1 tab .ROUTE .STK-MED ONE Oxycodone/APAP 5 mg/325 mg [Percocet Tablet 5/325Mg Med 11/30/20 23:35 Discontinued *] 1 tab PO STAT ONE Pantoprazole 40 mg [Protonix 40 mg IV] Med 12/01/20 10:00 Active 40 mg IV Q24H10 Terazosin HCl 1 mg [Hytrin 1 mg] Med 12/01/20 10:30 Active 2 mg PO DAILY OT Screen per Nursing Assess ONCE OT 12/01/20 02:46 Active PT Eval & Treat (MD Order) ONCE PT 12/01/20 09:51 Completed PT Screen per Nursing Assess ONCE PT 12/01/20 02:46 Active Patient Care Notes (Last 24 hours) 12/01/20 14:50 Case Management Note by Marlene Cheng CALLED BACK TO REPORT THAT THEY WOULD BE ABLE TO ACCEPT PT TOMORROW TO SERVICE. WILL NEED A STATEMENT SIGNED BY THE PHYSICIAN FOR THE WAIVER IN PLACE. Initialized on 12/01/20 14:50 - END OF NOTE 12/01/20 12:09 Case Management Note by Kenia Jaeger NOTIFIED OF REFERRAL Initialized on 12/01/20 12:09 - END OF NOTE 12/01/20 12:03 Case Management Note by Kenia Jaeger WHEN DR. DAVIS ROUNDED- PATIENT MENTIONED HE WOULD LIKE TO GO TO [facility] FOR REHAB. WILL SEND REFERRAL Initialized on 12/01/20 12:03 - END OF NOTE Code(s): S70.02XA - CONTUSION OF LEFT HIP, INITIAL ENCOUNTER (2) Fall Current Visit: Yes Status: Acute Qualifiers: Encounter type: initial encounter Qualified Code(s): W19.XXXA - Unspecified fall, initial encounter Code(s): W19.XXXA - UNSPECIFIED FALL, INITIAL ENCOUNTER (3) Near syncope Current Visit: Yes Status: Acute
[2020-12-02] MEDS: PROTONIX 40 MG IV IV SCH (08:36)
[2020-12-02] MEDS: HYTRIN 1 MG PO SCH (08:36)
[2020-12-02] MEDS: Zestril 20 MG PO SCH (08:36)
[2020-12-02] MEDS: COREG 12.5 MG PO SCH (08:36)
[2020-12-02] MEDS: Glucophage 500 MG PO SCH (08:36)
[2020-12-02] MEDS: ECOTRIN 81 MG PO SCH (08:36)
[2020-12-02] MEDS: hydroDIURIL 25 MG PO SCH (08:36)
[2020-12-02] MEDS: TORAdol 30 mg Injection IV PRN (09:00)
[2020-12-02 11:01] VITALS: BP 151/71; PULSE 70; O2SAT 98
== END 2020-12-02 12:40 ==
LOC: ED 21:27 → MED SURG 12-01 01:50
PROVIDERS: ADMIT General Practice; ATTEND General Practice
DX: M25.552 Pain in left hip (principal); R55 Syncope and collapse; W18.39XA Other fall on same level, initial encounter; R07.9 Chest pain, unspecified; R53.1 Weakness; R11.0 Nausea; Z79.899 Other long term (current) drug therapy; I10 Essential (primary) hypertension; E11.9 Type 2 diabetes mellitus without complications; Z86.73 Personal history of transient ischemic attack (TIA), and cerebral infarction without residual deficits; J44.9 Chronic obstructive pulmonary disease, unspecified; Z20.822 Contact with and (suspected) exposure to COVID-19
CPT/HCPCS: 36000; 36415; 70450; 71045; 72125; 72192; 80053; 81001; 82947; 84484; 85025; 93005; 93268; 97161; 99285; G0378; U0003; J1885; A9270-GY

== ENCOUNTER 2025-01-01 09:08 | Day surgery (SDC) | payer MEDICARE ==
[2025-01-01] MEDS: TETRACAINE 0.5% STERI-UNIT SOL OP ONE ×2 (09:44→09:45)
[2025-01-01] MEDS: Ak-Dilate OPHTHALMIC*** 0.71 ML, Cyclogyl 1% OPHTH SOL 0.71 ML, GATIFLOXACIN 0.5% OPHTH... OP SCH (09:44)
[2025-01-01 10:45] LABS: Calcium 9.2 mg/dL (8.4-10.2); Carbon Dioxide 24.0 mmol/L (22-30); Creatinine 1 1.43 mg/dL (0.66-1.25); EST GLOMERULAR FILTRATION RATE 50.5 ML/MIN; Glucose 119.0 mg/dL (74-106); Potassium 4.2 mmol/L (3.5-5.1); SGOT/AST 24.0 U/L (17-59); SGPT/ALT 20.0 U/L (0-50); Total Protein 7.5 g/dL (6.3-8.2)
[2025-01-01] MEDS ORDERED: Zofran 4 MG/2 ML VIAL IV PRN (11:30)
[2025-01-01] MEDS ORDERED: TRIAMCINOLONE 15 MG/ML INJ INTRAOP NR (11:30)
[2025-01-01] MEDS ORDERED: VIGAMOX/BSS 0.15% SYR IO NR (11:30)
[2025-01-01] MEDS ORDERED: BETADINE 5% OPHTHALMIC 30 ML OP NR (11:30)
[2025-01-01] MEDS ORDERED: OMIDRIA 1-0.3% VIAL IO NR (11:30)
[2025-01-01] MEDS ORDERED: DEXMEDETOMIDINE 80 MCG/20ML-NS IV NR (11:30)
[2025-01-01] MEDS ORDERED: DEXTENZA OP NR (11:30)
[2025-01-01] MEDS ORDERED: propofoL IV ONE (13:07)
[2025-01-01] MEDS: ACETAZOLAMIDE 250 MG TABLET PO ONE (13:45)
[2025-01-01 13:52] VITALS: BP 124/71; PULSE 69; RESP 20; TEMP 97.3; O2SAT 98
== END 2025-01-01 14:10 | disposition home or self-care (01) ==
LOC: SDC 09:08
PROVIDERS: ATTEND Ophthalmology
DX: H25.812 Combined forms of age-related cataract, left eye (principal); I10 Essential (primary) hypertension

== ENCOUNTER 2025-02-05 06:00 | Day surgery (SDC) | payer MEDICARE ==
[2025-02-05] MEDS: TETRACAINE 0.5% STERI-UNIT SOL OP ONE ×2 (06:20→06:22)
[2025-02-05] MEDS: Ak-Dilate OPHTHALMIC*** 0.71 ML, Cyclogyl 1% OPHTH SOL 0.71 ML, GATIFLOXACIN 0.5% OPHTH... OP SCH (06:21)
[2025-02-05] MEDS ORDERED: propofoL IV ONE (06:49)
[2025-02-05 06:54] LABS: Calcium 8.9 mg/dL (8.4-10.2); Carbon Dioxide 24.0 mmol/L (22-30); Creatinine 1 1.7 mg/dL (0.66-1.25); EST GLOMERULAR FILTRATION RATE 41.0 ML/MIN; Glucose 159.0 mg/dL (74-106); Potassium 3.8 mmol/L (3.5-5.1)
[2025-02-05 07:31] VITALS: RESP 20
[2025-02-05] MEDS: ACETAZOLAMIDE 250 MG TABLET PO ONE (07:40)
[2025-02-05] MEDS ORDERED: DEXMEDETOMIDINE 80 MCG/20ML-NS IV NR (08:00)
[2025-02-05] MEDS ORDERED: TRIAMCINOLONE 15 MG/ML INJ INTRAOP NR (08:00)
[2025-02-05] MEDS ORDERED: Zofran 4 MG/2 ML VIAL IV PRN (08:00)
[2025-02-05] MEDS ORDERED: OMIDRIA 1-0.3% VIAL IO NR (08:00)
[2025-02-05] MEDS ORDERED: DEXTENZA OP NR (08:00)
[2025-02-05] MEDS ORDERED: BETADINE 5% OPHTHALMIC 30 ML OP NR (08:00)
[2025-02-05] MEDS ORDERED: VIGAMOX/BSS 0.15% SYR IO NR (08:00)
[2025-02-05 08:02] VITALS: BP 100/64; PULSE 77; TEMP 97.5; O2SAT 96
== END 2025-02-05 08:13 | disposition home or self-care (01) ==
LOC: SDC 06:00
PROVIDERS: ATTEND Ophthalmology
DX: H25.811 Combined forms of age-related cataract, right eye (principal)